=== PATIENT | male | born 1965 | race Asian ===

== ENCOUNTER 2024-05-08 10:23 | Emergency (ER) | payer OTHER, SELFPAY ==
--- NOTE | 2024-05-08 11:24 | EDRN ---
pts first language is spanish and got diamond expert to get history. started yelling at triage nurse and MARINE SURVEYOR she does not want diamond expert her daughter and do the translating. MARINE SURVEYOR explained legally we need diamond expert. continued to yell at RN
and MARINE SURVEYOR. MARINE SURVEYOR talked to and tried to calm her down. went back to waiting room and daughter came in to finish triaging pt
--- NOTE | 2024-05-08 11:29 | ED.GENMED ---
ED Provider Triage
<ARIE Justin - Last Filed: 05/08/24 11:35>
-
Patient seen by provider in Triage?: Seen in Triage
Attestation: A medical screening examination has been initiated by a qualified medical provider. Based on the assessment performed at this time, it has been determined that an emergent medical condition may exist and the patient has been informed
that further medical evaluation and possible additional diagnostic testing may be needed.
HPI: 59-year-old male with recent MS/April 22, 2024 with stent(daughter reports still 80% blockage in LAD) presents to the ER for evaluation of cough for the past several days that is keeping him up at night. He saw his family doctor yesterday and
was given albuterol with no relief. No fevers. Pt + smoker (last cigarette Apr 22 after MS)
GENERAL: Alert , in no apparent distress
EYE: No visual abnormalities.
NECK: Trachea midline
ENT: No visible abnormalities.
LUNGS: No acute respiratory distress
NEUROLOGICAL: Alert and oriented
SKIN: Skin intact. No visible changes.
MUSCULOSKELETAL: Moving extremities normally
PSYCH: Normal and appropriate interaction.
This is a medical evaluation conducted in person to initiate diagnostic evaluation and provide initial therapeutics. Please see further documentation by the treating clinician.
History of Present Illness
<ARIE Justin - Last Filed: 05/08/24 11:35>
General
Chief Complaint: Cough
Time Seen by Provider: 05/08/24 12:01
<Bebo Richardson MD - Last Filed: 05/08/24 15:49>
History of Present Illness
History of Present Illness:
Patient presents the emergency department with cough, nasal congestion, body aches, difficulty sleeping. His is sick at home with an upper respiratory infection. He reports the symptoms for the past 2 days. Notes difficulty sleeping due to
frequent cough. Notes thick white mucous. Patient did have an MS about 2 weeks ago and had a stent placed. Patient denies any chest pain or leg swelling.
Phy Exam
<Bebo Richardson MD - Last Filed: 05/08/24 15:49>
Physical Exam
Physical Exam:
GENERAL APPEARANCE: NAD, well developed/ well nourished, frequent coughing
EYES lids/bilateral conjunctival injection
EARS/NOSE/THROAT Mucous membranes moist, uvula midline, pharyngeal erythema present, no exudate or swelling
HEAD/NECK normocephalic atraumatic, neck is supple.
RESPIRATORY respiratory effort normal, speaks in full sentences, no accessory muscle use. Lungs clear to auscultation without rhonchi, wheezes, rales
CARDIAC Regular rate and rhythm, no edema.
ABDOMINAL Soft, ND/NT.
MUSCLES/EXTREMITIES No abnormal range of motion, no swelling.
SKIN Warm, pink and dry. No rashes
NEUROLOGICAL Speech is clear and appropriate. Normal level of consciousness. 5/5 strength in all extremities.
PSYCH Normal mood and affect. Judgement/competence is appropriate
Course
<ARIE Justin - Last Filed: 05/08/24 11:35>
Orders/Labs/Results
Orders:
Orders
05/08/24 11:30
Electrocardiogram (*1) Stat
Reason for Study: Other
Other Reason for Exam: chest pain
Cardiac Monitoring- Treatment ONCE
EKG- Treatment ONCE
CR Chest - 2 Views Urgent
Comment:
Reason For Exam: cough
05/08/24 11:33
COVID-19 Antigen Urgent
Source: Nasal Swab
Complete Blood Count/With Diff Urgent
Comprehensive Metabolic Panel Urgent
Influenza A+B Rapid Molecular Urgent
PALMER Source: Nasal Swab
Specimen Description:
Abnormal Lab Results
05/08/24
11:33
WBC 11.4 H 10^3/uL
(4.8-10.8)
Absolute Neuts (auto) 7.8 H 10^3/uL
(1.4-6.5)
Absolute Monos (auto) 0.9 H 10^3/uL
(0.1-0.6)
Glucose 110 H mg/dl
(70-99)
ALT 61 H U/L
(0-50)
Alkaline Phosphatase 139 H U/L
(38-126)
05/08/24 11:33
05/08/24 11:33
Vital Signs
Initial and Last Documented VS:
Initial Vital Signs
Temp Pulse Resp BP Pulse Ox
97.5 F 88 16 132/89 97
05/08/24 11:36 05/08/24 11:36 05/08/24 11:36 05/08/24 11:36 05/08/24 11:36
Last Documented Vital Signs
Temp Pulse Resp BP Pulse Ox
97.5 F 77 22 116/81 93
05/08/24 11:36 05/08/24 14:15 05/08/24 14:15 05/08/24 14:00 05/08/24 14:15
<Bebo Richardson MD - Last Filed: 05/08/24 15:49>
Orders/Labs/Results
Orders:
Orders
05/08/24 11:30
Electrocardiogram (*1) Stat
Reason for Study: Other
Other Reason for Exam: chest pain
Cardiac Monitoring- Treatment ONCE
EKG- Treatment ONCE
CR Chest - 2 Views Urgent
Comment:
Reason For Exam: cough
05/08/24 11:33
COVID-19 Antigen Urgent
Source: Nasal Swab
Complete Blood Count/With Diff Urgent
Comprehensive Metabolic Panel Urgent
Influenza A+B Rapid Molecular Urgent
PALMER Source: Nasal Swab
Specimen Description:
Abnormal Lab Results
05/08/24
11:33
WBC 11.4 H 10^3/uL
(4.8-10.8)
Absolute Neuts (auto) 7.8 H 10^3/uL
(1.4-6.5)
Absolute Monos (auto) 0.9 H 10^3/uL
(0.1-0.6)
Glucose 110 H mg/dl
(70-99)
ALT 61 H U/L
(0-50)
Alkaline Phosphatase 139 H U/L
(38-126)
05/08/24 11:33
05/08/24 11:33
Vital Signs
Initial and Last Documented VS:
Initial Vital Signs
Temp Pulse Resp BP Pulse Ox
97.5 F 88 16 132/89 97
05/08/24 11:36 05/08/24 11:36 05/08/24 11:36 05/08/24 11:36 05/08/24 11:36
Last Documented Vital Signs
Temp Pulse Resp BP Pulse Ox
97.5 F 77 22 116/81 93
05/08/24 11:36 05/08/24 14:15 05/08/24 14:15 05/08/24 14:00 05/08/24 14:15
<Bebo Richardson MD - Last Filed: 05/08/24 15:49>
*Critical Care Note
Total Time (30-74mins, 75-104mins- exclusive of procedures): Not Applicable
ED Attending Note
<ARIE Justin - Last Filed: 05/08/24 11:35>
-
Portions of this chart may have been created with voice recognition software.� Occasional wrong word or��sound alike� substitutions may have occurred due to the inherent limitations of voice recognition software.
<Bebo Richardson MD - Last Filed: 05/08/24 15:49>
ED Attending Note
ED Attending Note:
Patient appears to have an upper respiratory infection. He is saturating 100% on room air and is in no respiratory distress. Will check chest x-ray, basic labs and viral panels. Recent MS noted however patient without chest pain or anginal
symptoms, no acute ST elevation on EKG
XR is clear. No findings of CHF clinically, clinically suggestive of URI / bronchitis. Will treat with cough meds/abx. Close outpatient follow up
Discharge Plan
Departure
Patient Disposition: Home (Routine Discharge)
Date of Disposition: 05/08/24
Time of Disposition: 14:18
Patient with high blood pressure during this ER visit?: Yes
Discharge Problem:
Acute bronchitis
Instructions: Acute Bronchitis, Adult (DC)
Prescriptions:
New
amoxicillin-pot clavulanate 875-125 mg tablet
1 tab PO BID 7 Days Qty: 14 0RF
benzonatate 200 mg capsule
200 mg PO TID PRN (Reason: Cough) 7 Days Qty: 15 0RF
Referrals:
Natasha Liao PA-C [Family Provider] -
Activity Restrictions/Additional Instructions:
Please follow-up with your primary doctor in the next couple of days. Return to ER if worse
Interventions
Interventions:
*Risk Screen - Suicide Last Done: 05/08/24 12:15
*General Assessment Last Done: 05/08/24 12:11
*Neglect/Abuse Screening Last Done: 05/08/24 12:11
*ED COVID-19 Vaccine History Last Done: 05/08/24 12:54
*Nursing Disposition Last Done: 05/08/24 14:41
ED- Pulmonary Assessment Last Done: 05/08/24 12:54
Discharge Date and Time
Discharge Date/Time: 05/08/24 14:42
Print Language: YORUBA
[2024-05-08 11:36] VITALS: BP 132/89
[2024-05-08 11:48] LABS: % Basophils 0.6 % (0-2); % Eosinophils 1.3 % (0-6); % Immature Granulocytes 0.4 % (0-0.5); % Lymphocytes 22.2 % (20.5-51.1); % Monocytes 7.5 % (1.7-9.3); Absolute Basophils 0.1 10^3/uL (0-0.2); Absolute Eosinophils 0.2 10^3/uL (0-0.7); Absolute Lymphocytes 2.5 10^3/uL (1.2-3.4); Absolute Monocytes 0.9 10^3/uL (0.1-0.6); Absolute Neutrophils 7.8 10^3/uL (1.4-6.5); Hemoglobin 14.4 g/dL (13.0-18.0); Mean Corp Hgb Conc. 33.5 g/dL (33.0-37.0); Mean Corpuscular Hgb 30.2 pg (27.0-31.0); Mean Corpuscular Volume 90.1 fL (80.0-94.0); Mean Platelet Volume 8.3 fL (7.4-10.4); Nucleated Red Blood Cells % 0 % (-); Platelet Count 346 10^3/uL (130-400); Red Blood Cell Count 4.77 10^6/uL (4.70-6.10); Red Cell Dist. Width 13.2 % (11.5-14.5); White Blood Cell Count 11.4 10^3/uL (4.8-10.8)
[2024-05-08 11:59] LABS: ALT (SGPT) 61 U/L (0-50); AST (SGOT) 48 U/L (17-59); Albumin 4.5 g/dl (3.5-5.0); Alkaline Phosphatase 139 U/L (38-126); Blood Urea Nitrogen 13 mg/dl (9-20); Calcium 9.9 mg/dl (8.4-10.2); Carbon Dioxide 24 mmol/L (22-30); Chloride 104 mmol/L (98-107); Glucose 110 mg/dl (70-99); Potassium 4.9 mmol/L (3.5-5.1); Sodium 140 mmol/L (135-145); Total Bilirubin 0.8 mg/dl (0.2-1.3); Total Protein 7.8 g/dl (6.3-8.2); eGFR > 60.00
[2024-05-08 12:07] LABS: COVID-19 Antigen Negative (Negative)
[2024-05-08 13:00] VITALS: BP 114/82
[2024-05-08 14:00] VITALS: BP 116/81
== END 2024-05-08 14:42 | disposition home or self-care (01) ==
LOC: EMR 10:23
PROVIDERS: Nurse Practitioner; EMERGENCY PHYSICIAN Emergency Medicine; FAMILY PHYSICIAN Physician Assistant
DX: J20.9 Acute bronchitis, unspecified (principal); Z11.52 Encounter for screening for COVID-19; F17.210 Nicotine dependence, cigarettes, uncomplicated
CPT/HCPCS: 99285; 71046; 80053; 85025; 87502; 87811; 93005

== ENCOUNTER 2024-05-28 07:48 | Day surgery (SDC) | payer OTHER, SELFPAY ==
[2024-05-28] VITALS (16 sets, daily range): BP systolic 101–126; BP diastolic 65–89; BMI 22.7
[2024-05-28 09:06] LABS: ACT-LR - POC 256 Seconds (116-155)
[2024-05-28 10:00] LABS: ACT-LR - POC 271 Seconds (116-155)
--- NOTE | 2024-05-28 10:35 | ITS.CL.ANGIO ---
Senior Clerk - Angioplasty
Angioplasty
Procedure Report:
LEFT HEART CATHETERIZATION
Date of Procedure: May 28, 2024
Procedures performed:
1: Percutaneous coronary intervention of the left anterior descending artery with placement of a 3.0 x 22 mm Dylan drug-eluting stent postdilated at high pressure with a 3.25 mm diameter noncompliant balloon
2: Percutaneous coronary intervention of the right coronary artery with angioplasty alone of a under deployed previously placed RCA stent using a 3.5 mm diameter noncompliant balloon and ultrasound guidance
Primary Care Physician: Natasha Liao PA-C
Primary Employee Relation Manager: Dr. Chema Fuentes
INDICATION: The patient is a 59-year-old previous smoker who presented with a inferior STEMI complicated by right ventricular cardiogenic shock to [facility] on May 01 treated with primary PCI of the right coronary artery. At that time
he was noted to have a calcified proximal/mid LAD lesion which was not acute and he now returns for staged PCI of the LAD.
ACCESS: The patient was prepped and draped in usual sterile fashion. A 6 [place] sheath was placed in the right radial artery using the Seldinger over the wire technique.
HEMODYNAMIC FINDINGS (mmHg):
LV(s/d,EDP): 120/9, 15
Ao(s/d,m): 120/67, 92
ANGIOGRAPHIC FINDINGS:
Single-plane Left Ventriculography in [place] Projection: Not done
Coronary Angiography:
Dominance: Right
Left Main: Medium caliber, normal.
Left Anterior Descending: The left anterior descending artery is a medium caliber vessel that has moderate to heavy mid calcification associated with a long 50-60 followed by a focal mid 80% stenosis. This lesion may involve the medium caliber
first diagonal branch. Due to vascular overlap this was not entirely clear as the lesion may be proximal to the bifurcation. Beyond the mid lesion the LAD is widely patent with only mild luminal irregularities and normal distal flow.
Left Circumflex: The left circumflex is a medium caliber nondominant system that gives rise to 1 major bifurcating obtuse marginal branch. This vessel has moderate nonobstructive luminal irregularities with at worst a 30% stenosis in the more
lateral branch. All vessels have normal flow.
Right Coronary: The previously placed proximal RCA stent is widely patent but appears obviously undersized when compared to the proximal and distal vessel outside the stented margins.
Percutaneous Coronary Intervention (PCI): The patient was pretreated with aspirin and Plavix. Unfractionated heparin was given. A 6 [place] XB 3.0 guiding catheter was used to engage the left main. A Hi-Torque floppy wire was easily advanced
across the LAD lesion and into the distal vessel. Predilation was performed with a 2.25 x 15 mm noncompliant balloon at high pressure. Next a 3.0 x 22 mm [place] stent was deployed at the lesion at 14 samson. The stent was postdilated with a 3.25 mm
diameter noncompliant balloon inflated to 16 samson distally and 18 samson proximally. Care was taken to stay within the stented margins.
FINAL RESULT: 0% in-stent residual stenosis with an excellent angiographic result and LONG-3 flow in all vessels.
PCI of the right coronary artery: In light of the angiographic findings noted today, it was clear to me that the previously placed RCA stent was under deployed and especially proximally was not well opposed. On careful review of the films from
April 22 the diameter of the [place] vessel had dilated dramatically probably secondary to high catecholamine with vasospasm in the setting of cardiogenic shock and acute RV infarct. The patient had already been pretreated with aspirin and Plavix
and unfractionated heparin documented the ACT to be over 250 seconds. With great care I prolapsed a Hi-Torque floppy wire through the previously placed stent. I attempted to advance an IVUS catheter through the stented segment. Although on
intravascular imaging it appeared to be truly luminal, the IVUS catheter would not pass through the midportion of the stent concerning me that the wire had actually gone under the stent strut. A second Hi-Torque floppy wire was advanced down the
vessel easily and appeared to be clearly luminal within the stent. The IVUS catheter would not pass on the second wire as well. Careful imaging from the proximal portion of the stent back showed the true vessel size to be closer to 3.5 mm. The
stent was dramatically undersized and not opposed proximally deployed at 2.5 to 2.6 mm. I pulled the initial wire out and then advanced a 3.25 mm diameter noncompliant balloon over the second wire which delivered easily to the distal portion of the
stent. Post dilation was performed at 16 and 18 samson in a distal to proximal fashion. I then was able to deliver the IVUS catheter distally and reimage the entire stented segment. This confirmed that the stent was still slightly under sized. I
then predilated the entire stented segment with a 3.5 mm diameter noncompliant balloon inflated to 16 samson in the distal and mid portions and 18 samson in the proximal portion. Again care was taken to stay within the stented margins.
FINAL RESULT: 0% in-stent residual stenosis with excellent angiographic result and LONG-3 flow in all vessels.
Fluoroscopy Time (min): 16.8
Radiation Dose (mGy): 738
DAP (Gy.cm2): 30
Closure device: None. A TR band was applied for hemostasis at the right wrist.
Complications: None.
ASSESSMENT:
1: Successful PCI of the LAD with placement of a drug-eluting stent as described above.
2: Successful PCI of the previously placed RCA stent with ultrasound guidance. Post dilation with appropriate sizing and good stent apposition using a 3.5 mm diameter noncompliant balloon at high pressure.
3: Normal left ventricular filling pressures.
CONCLUSIONS and RECOMMENDATIONS:
1: Routine post drug-eluting stent medical therapy and monitoring with dual antiplatelet therapy using aspirin and Plavix uninterrupted for a year with aspirin 81 mg daily indefinitely.
2: Close clinical follow-up as scheduled.
Adri Velasco M.D.
Copy to: Natasha Liao PA-C
--- NOTE | 2024-05-28 14:19 | W.PN.UPDATE ---
Update Note
Progress Note Update
59 yo male s/p PCI LAD x 1 Tiffanie and POBA to RCA (Same day). He denies cp, sob, ed diet, voiding, amb w/o dizziness, R raD site c/d/i, EKG no new ST changes. He will continue DAPT ASA/Plavix and statin. Cardiac rehab c/s. He will f/u Dr. Fuentes in 2-4
weeks. He is for d/c home after 3pm.
Procedures performed:
1: Percutaneous coronary intervention of the left anterior descending artery with placement of a 3.0 x 22 mm Dylan drug-eluting stent postdilated at high pressure with a 3.25 mm diameter noncompliant balloon
2: Percutaneous coronary intervention of the right coronary artery with angioplasty alone of a under deployed previously placed RCA stent using a 3.5 mm diameter noncompliant balloon and ultrasound guidance
[2024-05-28 14:37] LABS: ACT-LR - POC > 397 Seconds (116-155)
[2024-05-28 14:37] LABS: ACT-LR - POC > 397 Seconds (116-155)
== END 2024-05-28 15:00 | disposition home or self-care (01) ==
LOC: CATH 07:48
PROVIDERS: ATTENDING PHYSICIAN Internal Medicine Interventional Cardiology; PRIMARYCARE PHYSICIAN Physician Assistant; REFERRING PHYSICIAN Internal Medicine Cardiovascular Disease
DX: I25.10 Atherosclerotic heart disease of native coronary artery without angina pectoris (principal); I21.19 ST elevation (STEMI) myocardial infarction involving other coronary artery of inferior wall; Z95.5 Presence of coronary angioplasty implant and graft; I25.2 Old myocardial infarction; Z87.891 Personal history of nicotine dependence; Z79.02 Long term (current) use of antithrombotics/antiplatelets; Z79.82 Long term (current) use of aspirin; I25.84 Coronary atherosclerosis due to calcified coronary lesion
CPT/HCPCS: 85347; 92920; 92978; 93005; 93458; C1725; C1753; C1769; C1874; C1887; C1894; C9600; Q9967